=== PATIENT | male | born 1950 ===

== ENCOUNTER 2017-07-15 07:57 | Outpatient (CLI) | payer MEDICARE ==
--- NOTE | 2017-07-15 09:38 | XRay Report ---
Left knee 3 views: History: Knee pain. Findings: Marked narrowing of medial and patellofemoral compartment knee joint. Sclerotic articular surfaces with osteophyte suggesting severe degenerative changes. Tvia-di-[id number] degenerative changes of the lateral compartment. No soft tissue calcification or joint effusion. 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
== END 2017-07-15 07:58 | disposition home or self-care (01) ==
LOC: SPVIMAG 07:57
PROVIDERS: ATTEND Orthopaedic Surgery
DX: M17.12 Unilateral primary osteoarthritis, left knee (principal)